=== PATIENT | male | born 1960 | race Caucasian/White ===

== ENCOUNTER 2023-06-10 13:41 | Day surgery (SDC) | payer OTHER ==
[~2023-06-10] VITALS: Ht 172.7 cm; Wt 92.2 kg
[~2023-06-10 13:41] MED LIST: DIPH50; PRED20 PO; RANI150 PO
[2023-06-10] MEDS ORDERED: NAPR500 PO (14:16)
--- NOTE | 2023-06-10 14:25 | NUR ---
06/10/23 1425 Roxanne Bird CALL LIGHT WITHIN REACH. TETRACAINE IN RIGHT EYE AT 1417 AND PLEDGETT IN AT 1418
[2023-06-10 15:22] VITALS: BP 135/94
--- NOTE | 2023-06-10 15:40 | NUR ---
06/10/23 0660 Cristina Farias IV REMOVED WITH NO ISSUES. PT TOLERATED WELL. PRESENT FOR DISCHARGE INSTRUCTIONS.
== END 2023-06-10 15:35 | disposition home or self-care (01) ==
LOC: ORSCSDS 13:41
PROVIDERS: Ophthalmology
PROC: 08RJ3JZ Replacement of Right Lens with Synthetic Substitute, Percutaneous Approach (ICD-10-PCS; principal; 2023-06-10 15:00)
DX: H25.11 Age-related nuclear cataract, right eye (principal)
CPT/HCPCS: J2250; J3010; J3301; J7040; V2632